=== PATIENT | female | born 1990 ===

== ENCOUNTER 2024-01-03 21:44 | Emergency (ER) | payer SELFPAY ==
[~2024-01-03] VITALS: Ht 162.6 cm; Wt 76.1 kg
[2024-01-03 22:56] VITALS: BP 130/70; PULSE 100; RESP 17; TEMP 98.7
== END 2024-01-04 01:02 | disposition left against medical advice (07) ==
LOC: EMS 21:44 → EDBD 21:44 → EMS 01-04 01:02
DX: F10.129 Alcohol abuse with intoxication, unspecified (principal); Y90.9 Presence of alcohol in blood, level not specified
CPT/HCPCS: 99283; Z7502